=== PATIENT | female | born 1985 | race African-American/Black ===

== ENCOUNTER 2016-07-17 10:05 | Emergency (ER) | payer SELFPAY ==
[~2016-07-17] VITALS: Ht 149.9 cm; Wt 45.5 kg
[~2016-07-17 10:05] MED LIST: DOXYCYCLINE 10100 MG PO; FLAGYL500 MG PO; FLEXERIL 1010 MG/TAB PO; MAGIC MOUTH PO; MOTRIN 600600 MG/TAB PO; NORCO 325 MG-51 TAB PO; PHENERGAN W/CO120 M1 PO; PREDNISONE20 MG PO; PROAIR HFA0.09 MG/AC IH; ULTRAM 50MG TAB50 MG PO; VENTOLIN0.09 MG IH; ZOFRAN ODT4 MG PO
[2016-07-17 10:07] VITALS: BP 119/40; PULSE 105; TEMP 97.8
[2016-07-17 11:08] LABS: BASO % 0.7 % (0.0-2.0); EOS # 0.1 (0.0-0.7); EOS % 2.7 % (0-4.0); GRAN # 1.6 (1.4-6.5); GRAN % 40.8 % (42.2-75.2); LYMPH % 48.9 % (20.0-51.0); MEAN CELL VOLUME 92 fl (80.0-100.0); MEAN CORPUSCULAR HGB CONC 33 g/dl (33.0-37.0); MEAN PLATELET VOLUME 10.2 fl (7.4-10.4); MONO # 0.3 (0.1-0.6); MONO % 6.7 % (1.7-9.3); PLATELET COUNT 277 K/mm3 (130-400); REDCELL DISTRIBUTION WIDTH-CV 16.2 % (11.5-14.5)
[2016-07-17 11:15] LABS: HEMATOCRIT 35.1 % (37.0-47.0); HEMOGLOBIN 11.5 g/dl (12.5-16.0); MEAN CORPUSCULAR HEMOGLOBIN 30 pg (27.0-31.0)
[2016-07-17 11:33] LABS: PH 6 (5-8); URINE APPEARANCE Clear; URINE BACTERIA None Seen /hpf; URINE BILIRUBIN Negative (NEGATIVE); URINE BLOOD Negative (NEGATIVE); URINE COLOR Yellow; URINE GLUCOSE Negative (NEGATIVE); URINE KETONE Negative (NEGATIVE); URINE UROBILINOGEN Negative (NEGATIVE); URINE WBC 0-2 /hpf
[2016-07-17 11:34] LABS: ADJUSTED CALCIUM 9.1 mg/dL (8.4-10.2); ALBUMIN 4.1 gm/dL (3.5-5.0); BILIRUBIN,TOTAL 0.7 mg/dL (0.0-1.0); CALCIUM 9.2 mg/dL (8.4-10.2); CREATININE, serum 0.73 mg/dL (0.52-1.25); POTASSIUM 4.7 mmol/L (3.4-5.0); TOTAL PROTEIN 7.3 gm/dL (6.4-8.2)
[2016-07-17] MEDS ORDERED: ULTRAM 50MG TAB50 MG PO (12:19)
[2016-07-17] MEDS ORDERED: PHENERGAN 25 TA25 MG PO (12:19)
== END 2016-07-17 12:36 | disposition home or self-care (01) ==
LOC: COL.ER 10:05
PROVIDERS: Physician Assistant
DX: R10.2 Pelvic and perineal pain (principal); R10.32 Left lower quadrant pain
CPT/HCPCS: J1885; J2550; J7040

== ENCOUNTER 2016-08-11 10:32 | Emergency (ER) | payer SELFPAY ==
[~2016-08-11] VITALS: Ht 149.9 cm; Wt 45.5 kg
[~2016-08-11 10:32] MED LIST changes: +PHENERGAN 25 TA25 MG PO
[2016-08-11 10:36] VITALS: BP 115/70; TEMP 98
[2016-08-11 11:50] VITALS: PULSE 92
== END 2016-08-11 12:06 | disposition home or self-care (01) ==
LOC: COL.ER 10:32
DX: S63.8X1A Sprain of other part of right wrist and hand, initial encounter (principal); W22.01XA Walked into wall, initial encounter; Y92.009 Unspecified place in unspecified non-institutional (private) residence as the place of occurrence of the external cause

== ENCOUNTER 2016-11-12 20:55 | Emergency (ER) | payer SELFPAY ==
[~2016-11-12] VITALS: Ht 149.9 cm; Wt 45.5 kg
[2016-11-12 20:58] VITALS: TEMP 97.6
[2016-11-12 21:46] LABS: PH 6 (5-8); SQUAMOUS EPITHELIAL 0-2 /hpf; URINE APPEARANCE Hazy; URINE BACTERIA None Seen /hpf; URINE BILIRUBIN Negative (NEGATIVE); URINE BLOOD Negative (NEGATIVE); URINE COLOR Blue; URINE GLUCOSE Negative (NEGATIVE); URINE KETONE Negative (NEGATIVE)
[2016-11-12 22:25] LABS: BASO % 0.7 % (0.0-2.0); EOS # 0.1 (0.0-0.7); EOS % 2.4 % (0-4.0); GRAN # 1.7 (1.4-6.5); GRAN % 32.2 % (42.2-75.2); HEMATOCRIT 36.1 % (37.0-47.0); HEMOGLOBIN 11.7 g/dl (12.5-16.0); LYMPH # 3.1 (1.2-3.4); LYMPH % 56.7 % (20.0-51.0); MEAN CELL VOLUME 93 fl (80.0-100.0); MEAN CORPUSCULAR HEMOGLOBIN 30 pg (27.0-31.0); MEAN CORPUSCULAR HGB CONC 32 g/dl (33.0-37.0); MEAN PLATELET VOLUME 9.7 fl (7.4-10.4); MONO # 0.4 (0.1-0.6); MONO % 7.8 % (1.7-9.3); PLATELET COUNT 262 K/mm3 (130-400); RED BLOOD COUNT 3.89 M/mm3 (4.10-5.30); REDCELL DISTRIBUTION WIDTH-CV 15.6 % (11.5-14.5); WHITE BLOOD COUNT 5.4 K/mm3 (4.8-10.8)
[2016-11-12 22:36] LABS: ADJUSTED CALCIUM 9.2 mg/dL (8.4-10.2); ALBUMIN 4.3 gm/dL (3.5-5.0); BILIRUBIN,TOTAL 0.5 mg/dL (0.0-1.0); C-REACTIVE PROTEIN 0.7 mg/dL (0.0-0.9); CALCIUM 9.4 mg/dL (8.4-10.2); CREATININE, serum 0.7 mg/dL (0.52-1.25); TOTAL PROTEIN 7.5 gm/dL (6.4-8.2)
[2016-11-13] MEDS ORDERED: MACROBID 1100 MG/CAP PO (00:32)
[2016-11-13] MEDS ORDERED: DOXYCYCLINE HY100 MG PO (00:32)
[2016-11-13] MEDS ORDERED: NORCO 325 MG-51 TAB PO (00:32)
[2016-11-13 01:17] VITALS: BP 110/62; PULSE 83
[2016-11-13 02:03] LABS: CHLAMYDIA/TRACH by PCR Female NOT DETECTED; NEISSERIA GON by PCR Female NOT DETECTED
== END 2016-11-13 01:39 | disposition home or self-care (01) ==
LOC: COL.ER 20:55
PROVIDERS: Emergency Medicine
DX: N39.0 Urinary tract infection, site not specified (principal); R10.2 Pelvic and perineal pain
CPT/HCPCS: J0696; J3010; J7030; Q9967

== ENCOUNTER 2017-03-08 07:53 | Emergency (ER) | payer SELFPAY ==
[~2017-03-08] VITALS: Ht 152.4 cm; Wt 45.5 kg
[~2017-03-08 07:53] MED LIST changes: +DOXYCYCLINE HY100 MG PO; +MACROBID 1100 MG/CAP PO
[2017-03-08 08:00] VITALS: TEMP 97.5
[2017-03-08 08:38] LABS: COLLECTION METHOD CLEAN CATCH
[2017-03-08 08:52] LABS: MUCOUS Present /lpf; PH 6 (5-8); URINE APPEARANCE Clear; URINE BACTERIA Rare /hpf; URINE BILIRUBIN Negative (NEGATIVE); URINE BLOOD Negative (NEGATIVE); URINE COLOR Yellow; URINE GLUCOSE Negative (NEGATIVE); URINE KETONE Negative (NEGATIVE); URINE LEUKOCYTE ESTERASE Negative (NEGATIVE); URINE PROTEIN(semi-quant) Negative (NEGATIVE); URINE RBC 0-2 /hpf
[2017-03-08 08:52] LABS: MEAN CELL VOLUME 93 fl (80.0-100.0); MEAN CORPUSCULAR HGB CONC 33 g/dl (33.0-37.0); MEAN PLATELET VOLUME 9.3 fl (7.4-10.4); PLATELET COUNT 261 K/mm3 (130-400); RED BLOOD COUNT 3.52 M/mm3 (4.10-5.30); WHITE BLOOD COUNT 6.5 K/mm3 (4.8-10.8)
[2017-03-08 08:58] LABS: ADD PATHOLOGY DIFF REVIEW NO; HEMATOCRIT 32.7 % (37.0-47.0); HEMOGLOBIN 10.7 g/dl (12.5-16.0); MEAN CORPUSCULAR HEMOGLOBIN 30 pg (27.0-31.0)
[2017-03-08 09:05] LABS: ADJUSTED CALCIUM 8.4 mg/dL (8.4-10.2); ALANINE AMINOTRANSFERASE 32 U/L (9-52); ALBUMIN 4.4 gm/dL (3.5-5.0); ALKALINE PHOSPHATASE 40 U/L (50-136); ANION GAP 10 mmol/L (7-16); BILIRUBIN,TOTAL 0.4 mg/dL (0.0-1.0); BLOOD UREA NITROGEN 17 mg/dL (7-17); CALCIUM 8.7 mg/dL (8.4-10.2); CARBON DIOXIDE 24 mmol/L (22-30); CHLORIDE 103 mmol/L (98-107); CREATININE, serum 0.69 mg/dL (0.52-1.25); GLUCOSE 75 mg/dL (74-106); POTASSIUM 3.9 mmol/L (3.4-5.0); SODIUM 136 mmol/L (137-145); TOTAL PROTEIN 6.9 gm/dL (6.4-8.2)
[2017-03-08 09:07] LABS: C-REACTIVE PROTEIN < 0.5 mg/dL (0.0-0.9)
[2017-03-08 10:06] LABS: BAND 2 % (0-10); EOSINOPHIL 1 % (0-4); HYPOCHROMIA 1+; LYMPHOCYTE 59 % (20.0-51.0); METAMYELOCYTE 1 % (0-0); NEUTROPHILS 35 % (42.0-75.2); NUCLEATED RED BLOOD CELL 1 (0-6); OVALOCYTES 2+; PLATELET ESTIMATE NORMAL (NORMAL); TOTAL CELLS COUNTED 100
[2017-03-08] MEDS ORDERED: ZOFRAN ODT4 MG PO (10:43)
[2017-03-08 11:01] VITALS: BP 112/62; PULSE 68
== END 2017-03-08 11:02 | disposition home or self-care (01) ==
LOC: COL.ER 07:53
PROVIDERS: Nurse Practitioner
DX: K52.9 Noninfective gastroenteritis and colitis, unspecified (principal); J45.909 Unspecified asthma, uncomplicated; F17.210 Nicotine dependence, cigarettes, uncomplicated; Z98.51 Tubal ligation status; Z98.818 Other dental procedure status
CPT/HCPCS: J2060; J2405; J7030

== ENCOUNTER 2017-03-13 14:25 | Emergency (ER) | payer SELFPAY ==
[~2017-03-13] VITALS: Ht 152.4 cm; Wt 45.5 kg
[2017-03-13 14:28] VITALS: TEMP 98
[2017-03-13 15:14] LABS: COLLECTION METHOD CLEAN CATCH
[2017-03-13 15:17] LABS: BASO # 0.1 (0.0-0.2); BASO % 0.8 % (0.0-2.0); EOS # 0.1 (0.0-0.7); EOS % 1.2 % (0-4.0); GRAN # 3.6 (1.4-6.5); GRAN % 59.8 % (42.2-75.2); HEMATOCRIT 35.6 % (37.0-47.0); HEMOGLOBIN 11.6 g/dl (12.5-16.0); LYMPH # 1.9 (1.2-3.4); LYMPH % 30.9 % (20.0-51.0); MEAN CELL VOLUME 95 fl (80.0-100.0); MEAN CORPUSCULAR HEMOGLOBIN 31 pg (27.0-31.0); MEAN CORPUSCULAR HGB CONC 33 g/dl (33.0-37.0); MEAN PLATELET VOLUME 10.3 fl (7.4-10.4); MONO # 0.4 (0.1-0.6); PLATELET COUNT 205 K/mm3 (130-400); RED BLOOD COUNT 3.75 M/mm3 (4.10-5.30)
[2017-03-13 15:24] LABS: PH 7 (5-8); URINE APPEARANCE Hazy; URINE BACTERIA Rare /hpf; URINE BILIRUBIN Negative (NEGATIVE); URINE BLOOD 1+ (NEGATIVE); URINE COLOR Yellow; URINE GLUCOSE Negative (NEGATIVE); URINE KETONE Negative (NEGATIVE); URINE LEUKOCYTE ESTERASE Trace (NEGATIVE); URINE PROTEIN(semi-quant) Negative (NEGATIVE); URINE UROBILINOGEN Negative (NEGATIVE); URINE WBC 20-50 /hpf
[2017-03-13] MEDS ORDERED: CEFTIN500 MG PO (16:43)
[2017-03-13] MEDS ORDERED: NORCO 325 MG-51 TAB PO (16:43)
[2017-03-13 16:49] VITALS: BP 118/70; PULSE 80
[2017-03-14] MEDS ORDERED: CIPRO 500MG TA500 MG PO (17:24)
== END 2017-03-13 16:51 | disposition home or self-care (01) ==
LOC: COL.ER 14:25
PROVIDERS: Emergency Medicine
DX: N39.0 Urinary tract infection, site not specified (principal); F17.210 Nicotine dependence, cigarettes, uncomplicated; Z87.42 Personal history of other diseases of the female genital tract; Z98.51 Tubal ligation status
CPT/HCPCS: J1885; J2405; J3010; J7030

== ENCOUNTER 2017-04-26 12:30 | Emergency (ER) | payer SELFPAY ==
[~2017-04-26] VITALS: Ht 149.9 cm; Wt 44.1 kg
[~2017-04-26 12:30] MED LIST changes: +CEFTIN500 MG PO; +CIPRO 500MG TA500 MG PO
[2017-04-26 12:51] VITALS: BP 119/72; PULSE 83; TEMP 98.3
[2017-04-26 13:41] LABS: INFLUENZA A NEGATIVE; INFLUENZA B NEGATIVE
== END 2017-04-26 14:09 | disposition home or self-care (01) ==
LOC: COL.ER 12:30
PROVIDERS: Physician Assistant
DX: J11.1 Influenza due to unidentified influenza virus with other respiratory manifestations (principal); F31.9 Bipolar disorder, unspecified; F17.210 Nicotine dependence, cigarettes, uncomplicated; Z98.51 Tubal ligation status; Z98.818 Other dental procedure status

== ENCOUNTER 2017-06-09 05:02 | Emergency (ER) | payer SELFPAY ==
[~2017-06-09] VITALS: Ht 149.9 cm; Wt 45.5 kg
[2017-06-09 05:24] VITALS: TEMP 98.3
[2017-06-09 05:28] LABS: BASO # 0.1 (0.0-0.2); BASO % 0.9 % (0.0-2.0); EOS # 0.1 (0.0-0.7); EOS % 1.8 % (0-4.0); GRAN # 2.3 (1.4-6.5); GRAN % 41.9 % (42.2-75.2); LYMPH # 2.8 (1.2-3.4); LYMPH % 51.1 % (20.0-51.0); MEAN CELL VOLUME 91 fl (80.0-100.0); MEAN CORPUSCULAR HGB CONC 33 g/dl (33.0-37.0); MEAN PLATELET VOLUME 9.7 fl (7.4-10.4); MONO # 0.2 (0.1-0.6); MONO % 4.3 % (1.7-9.3); PLATELET COUNT 319 K/mm3 (130-400); REDCELL DISTRIBUTION WIDTH-CV 15.9 % (11.5-14.5)
[2017-06-09 05:29] LABS: HEMATOCRIT 34.7 % (37.0-47.0); HEMOGLOBIN 11.5 g/dl (12.5-16.0); MEAN CORPUSCULAR HEMOGLOBIN 30 pg (27.0-31.0)
[2017-06-09 05:44] LABS: ALBUMIN 4.8 gm/dL (3.5-5.0); BILIRUBIN,TOTAL 0.2 mg/dL (0.0-1.0); CREATININE, serum 0.67 mg/dL (0.52-1.25); POTASSIUM 4.6 mmol/L (3.4-5.0); TOTAL PROTEIN 7.9 gm/dL (6.4-8.2)
[2017-06-09 06:12] VITALS: BP 109/68; PULSE 94
== END 2017-06-09 06:14 | disposition home or self-care (01) ==
LOC: COL.ER 05:02
PROVIDERS: Emergency Medicine
DX: S10.93XA Contusion of unspecified part of neck, initial encounter (principal); F10.129 Alcohol abuse with intoxication, unspecified; Y90.8 Blood alcohol level of 240 mg/100 ml or more; J45.909 Unspecified asthma, uncomplicated; Y04.0XXA Assault by unarmed brawl or fight, initial encounter; Y92.009 Unspecified place in unspecified non-institutional (private) residence as the place of occurrence of the external cause
CPT/HCPCS: J7030; Q9967

== ENCOUNTER 2017-06-11 12:21 | Emergency (ER) | payer SELFPAY ==
[~2017-06-11] VITALS: Ht 149.9 cm; Wt 40.9 kg
[2017-06-11 12:25] VITALS: BP 120/84; TEMP 97
[2017-06-11] MEDS ORDERED: ADVIL200 MG PO (12:42)
[2017-06-11 13:31] VITALS: PULSE 82
== END 2017-06-11 13:31 | disposition home or self-care (01) ==
LOC: COL.ER 12:21
DX: M79.1 Myalgia (principal); F17.210 Nicotine dependence, cigarettes, uncomplicated